=== PATIENT | male | born 1965 | race Caucasian/White ===

== ENCOUNTER 2020-05-31 11:58 | Outpatient (CLI) | payer OTHER, SELFPAY ==
--- NOTE | ~2020-05-31 | CT_ITS ---
EXAMINATION: CT abdomen pelvis w con DATE: 05/31/2020 12:47 INDICATION: Right lower quadrant pain. Nausea, vomiting and diarrhea. TECHNIQUE: Computed tomography (CT) of the abdomen and pelvis was performed with 100 cc Omnipaque 350 intravenous contrast. The dose-length product was 1628.64 mGy-cm. Automated exposure control and ite rative reconstruction technique were employed. COMPARISON: CT dated 02/23/2018 FINDINGS: Lung bases are unremarkable. Heart size normal. No significant pleural or pericardial effus ion. There are chronic unchanged right adrenal calcifications possibly related to previous hemorrhage or infection. Fatty infiltration of the liver. The spleen, pancreas, left adrenal gland are unremark able. There are nonobstructing bilateral renal stones. There is a small subcentimeter hypodensity of the left kidney, most likely cysts. Gallbladder is present. There is mild thickening of a few segments of small bowel without evidence for obstruction. Normal ap pendix. No significant vascular abnormality. No lymphadenopathy. Moderate lower thoracic and lumbar spondylosis. There is scoliosis. IMPRESSION: 1. Mild segmental small bowel wall thickening, suspicious for enteritis. 2: Nonobstructing bilateral nephrolithiasis. Reviewed, dictated and finalized at location B.
[2020-05-31 12:19] LABS: Basophils Absolute Auto 0.02 K/mm3 (0.00-0.10); Basophils Percent Auto 0.3 % (0.0-1.0); Eosinophils Absolute Auto 0.07 K/mm3 (0.02-0.50); Eosinophils Percent Auto 0.9 % (1.0-6.0); Hematocrit 45.4 % (40.0-54.0); Hemoglobin 14.9 g/dL (14.0-18.0); Immature Granulocyte Absolute 0.04 K/mm3 (0.00-0.00); Immature Granulocyte Percent A 0.5 % (0.0-0.0); Lymphocytes Absolute Auto 2.17 K/mm3 (1.10-4.50); Mean Corpuscular HGB Conc 32.8 g/dL (32.0-36.0); Mean Corpuscular Hemoglobin 30.8 pg (27.0-31.0); Mean Corpuscular Volume 93.8 fL (78.0-102.0); Mean Platelet Volume 10.1 fl (8.7-11.0); Monocytes Absolute Auto 0.48 K/mm3 (0.10-0.90); Monocytes Percent Auto 6.2 % (2.0-11.0); Neutrophils Percent Auto 64.1 % (50.0-70.0); Platelet Count Result 211 K/mm3 (150-420); Red Blood Count 4.84 M/mm3 (4.70-6.10); Red Cell Distribution Width 11.8 % (11.6-14.4); White Blood Count 7.8 K/mm3 (4.8-10.8)
[2020-05-31 12:35] LABS: Alanine Aminotransferase 32 U/L (16-63); Albumin Level 3.6 g/dL (3.4-5.0); Alkaline Phosphatase 81 U/L (46-116); Amylase 32 U/L (25-115); Anion Gap 10 mmol/L (8-16); Aspartate Amino Transferase 12 U/L (15-37); Bilirubin,Total 0.3 mg/dL (0.00-1.00); Blood Urea Nitrogen 12 mg/dL (7-18); Carbon Dioxide 25 mmol/L (21-32); Chloride 104 mmol/L (98-108); Estimated Glomerular Filt Rate > 60; Glucose 175 mg/dL (70-99); Lipase 79 U/L (73-393); Osmolality Calculated 291 mOsm/kg (285-295); Potassium 3.7 mmol/L (3.5-5.1); Sodium 139 mmol/L (136-145); Total Protein 7.3 g/dL (6.4-8.2)
[2020-05-31 12:39] LABS: Add Urine Microscopic? YES; Appearance Urine Clear (Clear); Bilirubin Urine Negative (Negative); Blood Urine Negative (Negative); Color Urine Yellow (Yellow); Glucose Urine UA Negative (Negative); Ketones Urine Trace (Negative); Leukocyte Esterase Ur Negative (Negative); Nitrate Urine Negative (Negative); Protein Urine Negative (Negative); Specific Grav Ur >= 1.030 (1.010-1.020); Urobilinogen Urine 0.2 mg/dL (0.2-1.0)
[2020-05-31 12:46] LABS: Bacteria Urine None seen /hpf; RBC Urine 0-2 /hpf (0-2); Squamous Epithelial Cell Urine Few /hpf (Few); WBC Urine 0-3 /hpf (0-3)
== END 2020-05-31 11:59 | disposition home or self-care (01) ==
PROVIDERS: PCP Internal Medicine; Visit Provider Internal Medicine
DX: R10.31 Right lower quadrant pain (principal); R11.0 Nausea
CPT/HCPCS: 36415; 74177; 80053; 81001; 82150; 83690; 85025; 87077; 87086; 87088; 87186; Q9965

== ENCOUNTER 2020-08-05 12:57 | Outpatient (CLI) | payer OTHER, SELFPAY ==
[2020-08-05 13:13] LABS: Add Urine Microscopic? YES; Appearance Urine Clear (Clear); Basophils Absolute Auto 0.04 K/mm3 (0.00-0.10); Basophils Percent Auto 0.5 % (0.0-1.0); Bilirubin Urine Negative (Negative); Blood Urine Negative (Negative); Color Urine Yellow (Yellow); Eosinophils Absolute Auto 0.08 K/mm3 (0.02-0.50); Eosinophils Percent Auto 0.9 % (1.0-6.0); Glucose Urine UA Trace (Negative); Hematocrit 42.3 % (40.0-54.0); Hemoglobin 14.1 g/dL (14.0-18.0); Immature Granulocyte Absolute 0.05 K/mm3 (0.00-0.00); Immature Granulocyte Percent A 0.6 % (0.0-0.0); Ketones Urine Negative (Negative); Leukocyte Esterase Ur Negative LEU/UL (Negative); Lymphocytes Absolute Auto 2.67 K/mm3 (1.10-4.50); Lymphocytes Percent Auto 30.2 % (18.0-42.0); Mean Corpuscular HGB Conc 33.3 g/dL (32.0-36.0); Mean Platelet Volume 9.8 fl (8.7-11.0); Monocytes Absolute Auto 0.52 K/mm3 (0.10-0.90); Monocytes Percent Auto 5.9 % (2.0-11.0); Neutrophils Absolute Auto 5.5 K/mm3 (1.7-7.2); Neutrophils Percent Auto 61.9 % (50.0-70.0); Nitrate Urine Negative (Negative); Platelet Count Result 233 K/mm3 (150-420); Protein Urine Negative (Negative); Red Blood Count 4.55 M/mm3 (4.70-6.10); Red Cell Distribution Width 12.1 % (11.6-14.4); Urobilinogen Urine 0.2 mg/dL (0.2-1.0); White Blood Count 8.8 K/mm3 (4.8-10.8)
[2020-08-05 13:21] LABS: Bacteria Urine None seen /hpf; RBC Urine 0-2 /hpf (0-2); WBC Urine 0-3 /hpf (0-3)
[2020-08-05 14:11] LABS: Alanine Aminotransferase 42 U/L (16-63); Albumin Level 3.7 g/dL (3.4-5.0); Alkaline Phosphatase 86 U/L (46-116); Amylase 35 U/L (25-115); Anion Gap 13 mmol/L (8-16); Aspartate Amino Transferase 21 U/L (15-37); Bilirubin,Total 0.3 mg/dL (0.00-1.00); Blood Urea Nitrogen 11 mg/dL (7-18); Calcium 8.6 mg/dL (8.5-10.1); Carbon Dioxide 24 mmol/L (21-32); Chloride 103 mmol/L (98-108); Estimated Glomerular Filt Rate > 60; Glucose 187 mg/dL (70-99); Lipase 98 U/L (73-393); Osmolality Calculated 294 mOsm/kg (285-295); Potassium 4.1 mmol/L (3.5-5.1); Sodium 140 mmol/L (136-145); Total Protein 7.1 g/dL (6.4-8.2)
== END 2020-08-05 12:58 | disposition home or self-care (01) ==
LOC: CHSLAB 12:59
PROVIDERS: PCP Internal Medicine; Visit Provider Internal Medicine
DX: R10.9 Unspecified abdominal pain (principal)
CPT/HCPCS: 36415; 80053; 81001; 82150; 83690; 85025

== ENCOUNTER 2020-08-21 08:06 | Outpatient (CLI) | payer OTHER, SELFPAY ==
--- NOTE | ~2020-08-21 | MR_ITS ---
EXAMINATION: MR thoracic spine wo con DATE: 08/21/2020 09:29 INDICATION: Mid and low back pain TECHNIQUE: Magnetic resonance imaging (MRI) of the thoracic spine was performed without intravenous c ontrast. Sagittal localizer T1-weighted FSE of the cervicothoracic spine was obtained. Thoracic spine sequences included sagittal T2-weighted FSE, sagittal T1-weighted SE, Sagittal T2-weighted FS FSE, a nd axial T2-weighted FSE. COMPARISON: Thoracic spine radiographs dated 11/12/2018 FINDINGS: 25 degree upper thoracic levoscoliosis. Vertebral body heights are normal. Small T1 and T2 hyperinten se hemangioma at T10.Mild fibrovascular degenerative endplate changes anteriorly at T5-T6 through T8- T9 and T11-T12. Marrow signal is otherwise normal. Disc height loss at T2-T3 through T11-T12. Small l eft paracentral disc protrusions at T2-T3, T3-T4 and T4-T5 which result in only minimal central canal stenosis. Moderate multilevel bilateral thoracic facet osteoarthritis which contributes to mild neur al foraminal stenosis on the right at T1-T2, T6-T7, T8-T9 and T9-T10. On the left there is mild neura l foraminal stenosis resulting from small endplate osteophytes at T2-T3 and T3-T4. There is normal sp inal cord signal. Paravertebral soft tissues are unremarkable. IMPRESSION: 1. Mild to moderate thoracic spondylosis. Reviewed, dictated and finalized at location A. R DONOR COORDINATOR
--- NOTE | ~2020-08-21 | MR_ITS ---
EXAMINATION: MR lumbar spine wo con DATE: 08/21/2020 09:28 INDICATION: Mid and lower back pain TECHNIQUE: Magnetic resonance imaging (MRI) of the lumbar spine was performed without intravenous con trast. Sequences included sagittal T2-weighted FSE, sagittal T2-weighted FS FSE, sagittal T1-weighted FSE, and axial T2-weighted FSE. COMPARISON: None FINDINGS: 6 degrees lumbar levocurvature. 1-2 mm retrolisthesis L3 on L4 and 1 mm retrolisthesis L4 on L5. Schm orl's node along the superior endplate of L3 and on the endplates at both sides of the L3-L4 disc spa ce.. Vertebral body heights are otherwise normal. Fibrovascular degenerative endplate changes anterio rly at T12, L1 and L2. Marrow signal is otherwise normal. Disc desiccation and mild disc height loss at L2-L3 and L3-L4. The conus medullaris terminates at L1-L2. There is normal signal in the caudal sp inal cord. Paravertebral soft tissues are unremarkable. The following disc levels are specifically di scussed: T12-L1: The disc does not extend beyond the endplate margin. There is mild left and minimal right fac et joint osteoarthritis. There is no neural foraminal stenosis. There is no central canal stenosis. L1-L2: The disc does not extend beyond the endplate margin. There is mild bilateral facet joint osteo arthritis. There is no neural foraminal stenosis. There is no central canal stenosis. L2-L3: Disc is bulging. There is mild bilateral facet joint osteoarthritis. There is minimal bilatera l neural foraminal stenosis. There is mild central canal stenosis. L3-L4: Disc is mildly bulging. There is also moderate bilateral facet joint osteoarthritis. There is mild bilateral neural foraminal stenosis. There is mild central canal stenosis. L4-L5: Disc is mildly bulging. There is moderate bilateral facet joint osteoarthritis. There is mild right and mild to moderate left neural foraminal stenosis. There is mild central canal stenosis. L5-S1: The disc does not extend beyond the endplate margin. There is moderate left and mild to modera te right facet joint osteoarthritis. There is no neural foraminal stenosis. There is no central canal stenosis. IMPRESSION: 1. Mild to moderate lumbar spondylosis. Reviewed, dictated and finalized at location A. NT COORDINATOR
== END 2020-08-21 08:07 | disposition home or self-care (01) ==
LOC: CHSIMG 08:07
PROVIDERS: PCP Internal Medicine; Visit Provider Internal Medicine
DX: M54.5 Low back pain (principal); M54.6 Pain in thoracic spine
CPT/HCPCS: 72146; 72148

== ENCOUNTER 2022-02-06 00:11 | Day surgery (SDC) | payer OTHER, SELFPAY ==
[2022-01-23 14:22] VITALS: BMI 42.7
[2022-02-06 06:50] VITALS: BP 134/89; PULSE 92; RESP 19; TEMP 36.3; O2SAT 99
--- NOTE | 2022-02-06 06:52 | P.PNAN_ITS ---
Anes - Initial Pre Proc Eval Procedure: Operation Date: 02/06/22 08:00 Proposed Procedures p Screening Colonoscopy - Aguila South MD Date/Time: 02/06/22 06:52 Surgeon: Aguila South MD Pre Op Diagnosis: hx of colon polyps Patient Data Age: 56 Gender: M Height: 1.75 m Weight: 128.5 kg Last Vital Signs Temp 36.3 C L 02/06/22 06:50 Pulse 92 02/06/22 06:50 Resp 19 02/06/22 06:50 BP 134/89 02/06/22 06:50 Pulse Ox 99 02/06/22 06:50 Allergies Allergy/AdvReac Type Severity Reaction Status Date / Time No Known Allergies Allergy Verified 02/06/22 06:48 Home Medications Medication Instructions Recorded Confirmed Type lisinopril 2.5 mg PO DAILY 01/23/22 01/23/22 History metformin 500 mg PO BID 01/23/22 01/23/22 History pravastatin 20 mg PO DAILY 01/23/22 01/23/22 History Patient hx anesthesia problems: none Family hx anesthesia problems: none Results Review: All pre-operative results and documents have been reviewed as part of the pre-operative evaluation. [facility] Past Medical History Medical History (Updated 02/06/22 @ 06:53 by Ken Freeman DO) Diabetes type 2, controlled Hiatal hernia Hypertension Family History Family History (Updated 11/13/18 @ 08:18 by DOCTOR UNKNOWN) Father Diabetes mellitus Other Hypertension Social History Social History Smoking status: Never smoker Alcohol intake: current Substance use: never Living arrangements: with family Spiritual care concerns: No Anes - Eval Final PreProcedure Day of Procedure 02/06/22 06:52 Patient weight: morbidly obese Heart: regular rate and rhythm Lungs: clear to auscultation and normal air movement Airway: Mallampati scale class II Neurological: alert and oriented Last oral intake: >/= 8 hours ASA classification: III Emergent: no Anesthetic plan: proceed Anesthesia type and monitoring: general GIVS and standard monitoring Results Review: All pre-operative results and documents have been reviewed as part of the pre-operative evaluation. Informed Consent: The patient's anesthetic plan and its attendant risks and benefits were discussed with the patient/family/POA. Questions were solicited and answers provided to the satisfaction of the patient/family/POA.
[2022-02-06 07:04] LABS: Glucose Point of Care 119 mg/dl (65-105)
[2022-02-06] MEDS: LACTATED RINGERS 1,000 ML 150 ML IV CONT (07:04)
--- NOTE | 2022-02-06 07:14 | WPDGICN ---
Assessment and Plan Assessment and plan (1) History of colon polyps: Code(s): Z86.010 - Personal history of colonic polyps Status: Acute Assessment and Plan: Patient has a prior history of colon polyps. Most recently 5 years ago by colonoscopy. Surveillance colonoscopy to be performed today. Further recommendations will be given after endoscopy. GI Consult Note Consult date/time: 02/06/22 07:14 HPI: Bobby Chamberlain is a 56 year old male Presents for screening colonoscopy. Patient's current weight appetite and bowel movements are normal. Patient denies abdominal pain. He has had no bleeding. Family history is noncontributory. Patient's last colonoscopy 5 years ago did revealed benign colon polyps. For this reason patient presents now for surveillance colonoscopy. His current weight appetite bowel movements are normal. Review of Systems Review of Systems: All systems reviewed & are unremarkable except as noted in HPI and below PMFSH Past Medical History Medical History (Updated 02/06/22 @ 07:15 by Aguila South MD) Diabetes type 2, controlled Hiatal hernia Hypertension Family History Family History (Updated 11/13/18 @ 08:18 by DOCTOR UNKNOWN) Father Diabetes mellitus Other Hypertension Social History Social History Smoking status: Never smoker Alcohol intake: current Substance use: never Living arrangements: with family Spiritual care concerns: No Meds Home Medications and Allergies Home Medications Medication Instructions Recorded Confirmed Type lisinopril 2.5 mg PO DAILY 01/23/22 01/23/22 History metformin 500 mg PO BID 01/23/22 01/23/22 History pravastatin 20 mg PO DAILY 01/23/22 01/23/22 History Allergies Allergy/AdvReac Type Severity Reaction Status Date / Time No Known Allergies Allergy Verified 02/06/22 06:48 Vital Signs Vital Signs - 24 hr 02/06/22 06:50 Temperature 97.3 F L Pulse Rate 92 Respiratory Rate 19 Blood Pressure 134/89 Pulse Oximetry 99 Exam Narrative: Physical exam reveals patient to be alert. Vital signs stable. HEENT exam is unremarkable. Patient is anicteric. Lungs are clear to auscultation and percussion. Heart is without murmur or extra sounds. Abdominal exam bowel sounds are present soft nontender with no organomegaly. Digital external rectal exam is normal.
[2022-02-06 08:21] VITALS: BP 103/64; PULSE 83; RESP 24; O2SAT 95
[2022-02-06 08:31] VITALS: BP 111/55; PULSE 80; RESP 22; O2SAT 97
[2022-02-06 08:41] VITALS: BP 116/64; PULSE 69; RESP 20; O2SAT 99
== END 2022-02-06 08:56 | disposition home or self-care (01) ==
PROVIDERS: PCP Internal Medicine; Visit Provider Internal Medicine Gastroenterology
PROC: 0DJD8ZZ Inspection of Lower Intestinal Tract, Via Natural or Artificial Opening Endoscopic (ICD-10-PCS; CPT 45378; principal; 2022-02-06 08:00)
DX: Z12.11 Encounter for screening for malignant neoplasm of colon (principal); D12.2 Benign neoplasm of ascending colon; D12.3 Benign neoplasm of transverse colon; K63.5 Polyp of colon; K57.30 Diverticulosis of large intestine without perforation or abscess without bleeding; K64.8 Other hemorrhoids; E11.9 Type 2 diabetes mellitus without complications; I10 Essential (primary) hypertension; Z79.84 Long term (current) use of oral hypoglycemic drugs; E66.01 Morbid (severe) obesity due to excess calories; Z68.41 Body mass index [BMI] 40.0-44.9, adult
CPT/HCPCS: 45385; 82948; 88305; J2704; J7120

== ENCOUNTER 2023-01-16 15:20 | Outpatient (RCR) | payer OTHER, SELFPAY ==
--- NOTE | 2023-01-16 15:54 | PTOPEVAL1 ---
Assessment and note entered by Rafale Lund Evaluation Information Assessment Status Evaluation Diagnosis low back pain Onset 01/10/23 Subjective Information Pt. reports that he has had on/off back pain for years. He describes pain in the middle of the low back. Pain is most notable with switching positions. He reports that sitting for 5-10 minutes, it then becomes difficult to get up. He reports that pain will wake him, but does use a sleep aid that has helped recently. He states that he has no problem with long periods of standing. He reports that his pain has not affected his daily lifestyle. He report that his biggest complication currently is his difficutly with sleep due to pain. He reports that his goal for therapy is to be able to improve sleep by decreasing his low back pain. Reported Pain Level Pain Score 2: Self Report Assessment PT Clinical Summary Pt. is a 57 year old male who enters the clinic due to low back pain. He presents with impaired postural awareness, impaired l.e. and core strength, impaired flexibility, and pain. Continued skilled PT is indicaetd in order to improve these areas to allow the pt. to be able to achieve his goal of decreased pain and improved sleep habits. Plan of Care Interventions Electrical Stimulation,Hot Pack/Cold Pack,Manual Therapy,Neuro Re-education,Patient/Caregiver Educati,Therapeutic Activities,Therapeutic Exercise PT Services Indicated Yes Treatment Frequency and 2x/week x 8 visits Duration These treatments will address the objective and functional deficits as defined above. The patient will be advanced safely and appropriately in order for the patient to progress towards his/her prior level of function. Additional exercises will be introduced and as well as a comprehensive home exercise program upon discharge, if needed, ?to ensure carryover of functional gains achieved in the clinic. This treatment plan has been reviewed and agreement upon by the patient.
== END 2023-02-06 23:59 | disposition home or self-care (01) ==
LOC: CHSPT 15:20
PROVIDERS: Visit Provider Nurse Practitioner Family
DX: M54.59 Other low back pain (principal); M47.816 Spondylosis without myelopathy or radiculopathy, lumbar region
CPT/HCPCS: 97014; 97110; 97112; 97140; 97161; G0283